=== PATIENT | female | born 1975 | race African-American/Black ===

== ENCOUNTER 2016-12-10 20:11 | Emergency (ER) | payer SELFPAY ==
[2016-12-10] MEDS ORDERED: ASPIRIN 81 MG TABLET, CHEWABLE PO ONE (20:14)
--- NOTE | 2016-12-10 20:57 | RADIOLOGY REPORT (SQ) ---
EXAM DESCRIPTION: CHEST SINGLE VIEW COMPLETED DATE/TIME: 12/10/2016 8:44 pm REASON FOR STUDY: cp COMPARISON: January 2009 EXAM PARAMETERS: NUMBER OF VIEWS: One view. TECHNIQUE: Single frontal radiographic view of the chest acquired. RADIATION DOSE: NA LIMITATIONS: None. FINDINGS: LUNGS AND PLEURA: No opacities, masses or pneumothorax. No pleural effusion. MEDIASTINUM AND HILAR STRUCTURES: No masses. Contour normal. HEART AND VASCULAR STRUCTURES: Heart normal in size. Normal vasculature. BONES: No acute findings. HARDWARE: None in the chest. OTHER: No other significant finding. IMPRESSION: NO ACUTE RADIOGRAPHIC FINDING IN THE CHEST. TECHNICAL DOCUMENTATION: JOB ID: [id number]
[2016-12-10 20:59] LABS: ABSOLUTE EOSINOPHILS # (AUTO) 0.1 10^3/uL (0.0-0.6); ABSOLUTE LYMPHOCYTES (AUTO) 1.4 10^3/uL (0.5-4.7); ABSOLUTE MONOCYTES (AUTO) 0.2 10^3/uL (0.1-1.4); ABSOLUTE NEUT (AUTO) 3.1 10^3/uL (1.7-8.2); BASOPHILS % (AUTO) 0.9 % (0-2); EOSINOPHILS % (AUTO) 2.1 % (0-6); HEMATOCRIT 36.8 % (36.0-47.0); HEMOGLOBIN 12.6 g/dL (12.0-15.5); LYMPHOCYTES % (AUTO) 28.8 % (13-45); MEAN CORPUSCULAR HEMOGLOBIN 26.7 pg (27.0-33.4); MEAN CORPUSCULAR HGB CONC 34.4 g/dL (32.0-36.0); MEAN CORPUSCULAR VOLUME 78 fl (80-97); MONOCYTES % (AUTO) 4.9 % (3-13); RED BLOOD COUNT 4.73 10^6/uL (3.72-5.28); RED CELL DISTRIBUTION WIDTH 17.8 % (11.5-14.0); SEGMENTED NEUTROPHILS % (AUTO) 63.3 % (42-78); WHITE BLOOD COUNT 4.9 10^3/uL (4.0-10.5)
[2016-12-10 21:28] LABS: CREATINE KINASE MB 1.04 ng/mL (<4.55)
[2016-12-10 21:29] LABS: TROPONIN I < 0.012 ng/mL
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
[2016-12-10 21:54] VITALS: BP 169/119
--- NOTE | 2016-12-11 12:12 | EKG REPORT ---
SEVERITY:- ABNORMAL ECG - SINUS RHYTHM LEFT ATRIAL ABNORMALITY PROBABLE LEFT VENTRICULAR HYPERTROPHY : Confirmed by: Adele Barkley MD 11-Dec-2016 12:11:31
== END 2016-12-10 21:52 | disposition home or self-care (01) ==
LOC: ER 20:11
DX: R07.9 Chest pain, unspecified (principal); R00.2 Palpitations; F17.200 Nicotine dependence, unspecified, uncomplicated
CPT/HCPCS: 36415; 71010; 82553; 84484; 85025; 93005; 93010; 99285

== ENCOUNTER 2017-01-23 14:53 | Emergency (ER) | payer SELFPAY ==
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
[2017-01-23] MEDS ORDERED: LIDOCAINE 1% INJ-PF (10 MG/ML) 30 ML SDV INJ ONE (15:31)
[2017-01-23] MEDS ORDERED: HYDROCODONE/ACETAMINOPHEN 5-325 MG TABLET PO ONE (16:28)
[2017-01-23] MEDS ORDERED: SULFAMETHOXAZOLE/TRIMETHOPRIM 800-160 MG TABLET PO ONE (16:28)
[2017-01-23 17:11] VITALS: BP 151/103
== END 2017-01-23 17:11 | disposition home or self-care (01) ==
LOC: ER 14:53
PROC: 0H96XZZ Drainage of Back Skin, External Approach (ICD-10-PCS; principal; 2017-01-23)
DX: L02.212 Cutaneous abscess of back [any part, except buttock and flank] (principal); F17.210 Nicotine dependence, cigarettes, uncomplicated; Z90.49 Acquired absence of other specified parts of digestive tract
CPT/HCPCS: 99406; 99283; 10061; J3490

== ENCOUNTER 2017-02-11 15:06 | Emergency (ER) | payer SELFPAY ==
[2017-02-11 15:10] VITALS: BP 163/107
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
== END 2017-02-11 16:05 | disposition home or self-care (01) ==
LOC: ER 15:06
DX: L02.414 Cutaneous abscess of left upper limb (principal)
CPT/HCPCS: 99282

== ENCOUNTER 2017-04-01 12:39 | Emergency (ER) | payer SELFPAY ==
[2017-04-01] MEDS ORDERED: IPRATROPIUM/ALBUTEROL 0.5-2.5 MG/3 ML AMPUL NEB ONE (13:17)
[2017-04-01] MEDS ORDERED: DEXAMETHASONE 4 MG TABLET PO ONE (13:17)
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
--- NOTE | 2017-04-01 14:00 | RADIOLOGY REPORT (SQ) ---
EXAM DESCRIPTION: CHEST PA/LAT COMPLETED DATE/TIME: 04/01/2017 1:44 pm REASON FOR STUDY: cough COMPARISON: Chest film 01/29/2009, 11/21/2006 EXAM PARAMETERS: NUMBER OF VIEWS: two views TECHNIQUE: Digital Frontal and Lateral radiographic views of the chest acquired. RADIATION DOSE: NA LIMITATIONS: none FINDINGS: LUNGS AND PLEURA: No opacities, masses or pneumothorax. No pleural effusion. MEDIASTINUM AND HILAR STRUCTURES: No masses or contour abnormalities. HEART AND VASCULAR STRUCTURES: Heart normal size. No evidence for failure. BONES: No acute findings. HARDWARE: None in the chest. OTHER: No other significant finding. IMPRESSION: NO SIGNIFICANT RADIOGRAPHIC FINDING IN THE CHEST. TECHNICAL DOCUMENTATION: JOB ID: [id number] [employer]- All Rights Reserved
[2017-04-01 14:08] VITALS: BP 168/114
== END 2017-04-01 14:06 | disposition home or self-care (01) ==
LOC: ER 12:39
DX: R05 Cough (principal); I10 Essential (primary) hypertension; R09.81 Nasal congestion; J34.89 Other specified disorders of nose and nasal sinuses; F17.200 Nicotine dependence, unspecified, uncomplicated
CPT/HCPCS: 94640; 99283; 71020; J7620

== ENCOUNTER 2017-04-02 10:54 | Emergency (ER) | payer SELFPAY ==
[2017-04-02] MEDS ORDERED: IBUPROFEN 600 MG TABLET PO ONE (12:03)
[2017-04-02] MEDS ORDERED: AMLODIPINE BESYLATE 5 MG TABLET PO ONE (12:03)
[2017-04-02] MEDS ORDERED: ACETAMINOPHEN 325 MG TABLET PO ONE (12:03)
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
[2017-04-02 12:29] VITALS: BP 161/116
== END 2017-04-02 12:30 | disposition home or self-care (01) ==
LOC: ER 10:54
DX: R51 Headache (principal); I10 Essential (primary) hypertension; F17.200 Nicotine dependence, unspecified, uncomplicated
CPT/HCPCS: 99283

== ENCOUNTER 2017-04-09 14:57 | Emergency (ER) | payer SELFPAY ==
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
--- NOTE | 2017-04-09 16:05 | RADIOLOGY REPORT (SQ) ---
EXAM DESCRIPTION: CHEST PA/LAT COMPLETED DATE/TIME: 04/09/2017 3:52 pm REASON FOR STUDY: Cough and shortness of breath COMPARISON: 04/01/2017. TECHNIQUE: Frontal and lateral radiographic views of the chest acquired. NUMBER OF VIEWS: Two view. LIMITATIONS: None. FINDINGS: LUNGS AND PLEURA: No opacities, masses or pneumothorax. No pleural effusion. MEDIASTINUM AND HILAR STRUCTURES: No masses or contour abnormalities. HEART AND VASCULAR STRUCTURES: Heart normal size. No evidence for failure. BONES: No acute findings. HARDWARE: None in the chest. OTHER: No other significant finding. IMPRESSION: NO SIGNIFICANT RADIOGRAPHIC FINDING IN THE CHEST. TECHNICAL DOCUMENTATION: JOB ID: [id number] [email or web address]- All Rights Reserved
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
[2017-04-09 16:51] LABS: ABSOLUTE EOSINOPHILS # (AUTO) 0.1 10^3/uL (0.0-0.6); ABSOLUTE LYMPHOCYTES (AUTO) 1.9 10^3/uL (0.5-4.7); ABSOLUTE MONOCYTES (AUTO) 0.4 10^3/uL (0.1-1.4); ABSOLUTE NEUT (AUTO) 2.8 10^3/uL (1.7-8.2); BASOPHILS % (AUTO) 0.9 % (0-2); EOSINOPHILS % (AUTO) 1.7 % (0-6); HEMATOCRIT 41.6 % (36.0-47.0); HEMOGLOBIN 14.2 g/dL (12.0-15.5); MEAN CORPUSCULAR HEMOGLOBIN 27.9 pg (27.0-33.4); MEAN CORPUSCULAR HGB CONC 34.2 g/dL (32.0-36.0); MEAN CORPUSCULAR VOLUME 82 fl (80-97); MONOCYTES % (AUTO) 7.9 % (3-13); RED CELL DISTRIBUTION WIDTH 16.8 % (11.5-14.0); SEGMENTED NEUTROPHILS % (AUTO) 53.5 % (42-78); WHITE BLOOD COUNT 5.3 10^3/uL (4.0-10.5)
[2017-04-09 17:01] LABS: ALANINE AMINOTRANSFERASE 84 U/L (9-52); ALBUMIN 4.1 g/dL (3.5-5.0); ALKALINE PHOSPHATASE 89 U/L (38-126); ANION GAP 13 (5-19); ASPARTATE AMINO TRANSFERASE 37 U/L (14-36); BILIRUBIN,DIRECT 0.3 mg/dL (0.0-0.4); BILIRUBIN,TOTAL 0.6 mg/dL (0.2-1.3); BLOOD UREA NITROGEN 11 mg/dL (7-20); CALCIUM 9.4 mg/dL (8.4-10.2); CARBON DIOXIDE 29 mmol/L (22-30); CHLORIDE 104 mmol/L (98-107); CREATININE RESULT 0.76 mg/dL (0.52-1.25); GLUCOSE 97 mg/dL (75-110); TOTAL PROTEIN 7.3 g/dL (6.3-8.2)
[2017-04-09 17:13] LABS: TROPONIN I < 0.012 ng/mL
[2017-04-09 17:25] LABS: APPEARANCE,URINE CLOUDY; BILIRUBIN,URINE NEGATIVE (NEGATIVE); GLUCOSE, URINE NEGATIVE (NEGATIVE); KETONES,URINE NEGATIVE (NEGATIVE); LEUKOCYTE ESTERASE,URINE NEGATIVE (NEGATIVE); NITRITE,URINE NEGATIVE (NEGATIVE); PROTEIN,URINE 30 mg/dL (NEGATIVE); URINE SPECIFIC GRAVITY 1.017; UROBILINOGEN,URINE NEGATIVE mg/dL (<2.0)
[2017-04-09 17:32] LABS: THYROID STIMULATING HORMONE 1.39 uIU/mL (0.47-4.68)
[2017-04-09 18:36] VITALS: BP 143/98
--- NOTE | 2017-04-10 14:04 | EKG REPORT ---
SEVERITY:- ABNORMAL ECG - SINUS RHYTHM CONSIDER LEFT VENTRICULAR HYPERTROPHY : Confirmed by: Adele Barkley MD 10-Apr-2017 14:03:20
== END 2017-04-09 18:33 | disposition home or self-care (01) ==
LOC: ER 14:57
DX: J06.9 Acute upper respiratory infection, unspecified (principal); R51 Headache; R09.81 Nasal congestion; I10 Essential (primary) hypertension
CPT/HCPCS: 36415; 71020; 80053; 81001; 82553; 84439; 84443; 84484; 85025; 85379; 93005; 93010; 99285

== ENCOUNTER 2017-08-18 21:26 | Emergency (ER) | payer SELFPAY ==
--- NOTE | 2017-08-18 23:08 | EKG REPORT ---
SEVERITY:- ABNORMAL ECG - SINUS RHYTHM PROBABLE LEFT ATRIAL ABNORMALITY PROBABLE LEFT VENTRICULAR HYPERTROPHY : Confirmed by: Malgorzata Torres 18-Aug-2017 23:08:05
[2017-08-18] MEDS ORDERED: ASPIRIN 81 MG TABLET, CHEWABLE PO ONE (23:53)
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
--- NOTE | 2017-08-19 00:21 | RADIOLOGY REPORT (SQ) ---
EXAM DESCRIPTION: CHEST SINGLE VIEW CLINICAL HISTORY: chest pain COMPARISON: 04/09/2017 FINDINGS: Single frontal view of the chest. The cardiomediastinal silhouette has normal size and contour. No consolidation, pneumothorax, or pleural effusion. No displaced rib fractures identified. Prior cholecystectomy. IMPRESSION: 1. No acute pulmonary process identified.
[2017-08-19 00:22] LABS: ABSOLUTE BASOPHILS # (AUTO) 0.1 10^3/uL (0.0-0.2); ABSOLUTE EOSINOPHILS # (AUTO) 0.1 10^3/uL (0.0-0.6); ABSOLUTE LYMPHOCYTES (AUTO) 1.6 10^3/uL (0.5-4.7); ABSOLUTE MONOCYTES (AUTO) 0.4 10^3/uL (0.1-1.4); ABSOLUTE NEUT (AUTO) 3.8 10^3/uL (1.7-8.2); BASOPHILS % (AUTO) 0.9 % (0-2); EOSINOPHILS % (AUTO) 1.5 % (0-6); HEMATOCRIT 41.8 % (36.0-47.0); HEMOGLOBIN 14.1 g/dL (12.0-15.5); MEAN CORPUSCULAR HEMOGLOBIN 26.1 pg (27.0-33.4); MEAN CORPUSCULAR HGB CONC 33.6 g/dL (32.0-36.0); MEAN CORPUSCULAR VOLUME 78 fl (80-97); PLATELET COUNT 223 10^3/uL (150-450); RED BLOOD COUNT 5.38 10^6/uL (3.72-5.28); RED CELL DISTRIBUTION WIDTH 16.7 % (11.5-14.0); SEGMENTED NEUTROPHILS % (AUTO) 63.6 % (42-78); TOTAL CELLS COUNTED % (AUTO) 100 %
[2017-08-19 00:36] LABS: ALANINE AMINOTRANSFERASE 77 U/L (9-52); ALBUMIN 4.4 g/dL (3.5-5.0); ALKALINE PHOSPHATASE 79 U/L (38-126); ANION GAP 11 (5-19); ASPARTATE AMINO TRANSFERASE 40 U/L (14-36); BILIRUBIN,DIRECT 0.1 mg/dL (0.0-0.4); BILIRUBIN,TOTAL 0.4 mg/dL (0.2-1.3); BLOOD UREA NITROGEN 9 mg/dL (7-20); CALCIUM 9.6 mg/dL (8.4-10.2); CARBON DIOXIDE 24 mmol/L (22-30); CHLORIDE 103 mmol/L (98-107); CREATINE KINASE 141 U/L (30-135); GLUCOSE 168 mg/dL (75-110); POTASSIUM 4.1 mmol/L (3.6-5.0); SODIUM 137.8 mmol/L (137-145); TOTAL PROTEIN 7.5 g/dL (6.3-8.2)
[2017-08-19 00:47] LABS: CREATINE KINASE MB 0.78 ng/mL (<4.55); TROPONIN I < 0.012 ng/mL
[2017-08-19] MEDS ORDERED: AMLODIPINE BESYLATE 5 MG TABLET PO ONE (02:27)
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
[2017-08-19 04:55] VITALS: BP 143/113
--- NOTE | 2017-08-19 09:08 | EKG REPORT ---
SEVERITY:- ABNORMAL ECG - SINUS RHYTHM PROBABLE LEFT ATRIAL ABNORMALITY PROBABLE LEFT VENTRICULAR HYPERTROPHY : Confirmed by: Malgorzata Torres 19-Aug-2017 09:07:55
== END 2017-08-19 04:55 | disposition home or self-care (01) ==
LOC: ER 21:26
DX: R20.0 Anesthesia of skin (principal); I10 Essential (primary) hypertension; R20.2 Paresthesia of skin; F17.200 Nicotine dependence, unspecified, uncomplicated; Z90.49 Acquired absence of other specified parts of digestive tract
CPT/HCPCS: 36415; 71045; 80053; 82550; 82553; 84484; 84703; 85025; 93005; 93010; 99284

== ENCOUNTER 2018-06-27 16:01 | Emergency (ER) | payer SELFPAY ==
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
--- NOTE | 2018-06-27 17:57 | RADIOLOGY REPORT (SQ) ---
EXAM DESCRIPTION: CHEST 2 VIEWS COMPLETED DATE/TIME: 06/27/2018 5:48 pm REASON FOR STUDY: cough, CP COMPARISON: Chest films 08/19/2017 EXAM PARAMETERS: NUMBER OF VIEWS: two views TECHNIQUE: Digital Frontal and Lateral radiographic views of the chest acquired. RADIATION DOSE: NA LIMITATIONS: none FINDINGS: LUNGS AND PLEURA: No opacities, masses or pneumothorax. No pleural effusion. MEDIASTINUM AND HILAR STRUCTURES: No masses or contour abnormalities. HEART AND VASCULAR STRUCTURES: Heart normal size. No evidence for failure. BONES: No acute findings. HARDWARE: Clips right upper quadrant post cholecystectomy. OTHER: No other significant finding. IMPRESSION: NO ACUTE RADIOGRAPHIC FINDING IN THE CHEST. TECHNICAL DOCUMENTATION: JOB ID: [id number] [employer]- All Rights Reserved Reading location - IP/workstation name: [email or web address]
[2018-06-27 18:10] LABS: ABSOLUTE EOSINOPHILS # (AUTO) 0.1 10^3/uL (0.0-0.6); ABSOLUTE LYMPHOCYTES (AUTO) 2.2 10^3/uL (0.5-4.7); ABSOLUTE MONOCYTES (AUTO) 0.5 10^3/uL (0.1-1.4); ABSOLUTE NEUT (AUTO) 4.5 10^3/uL (1.7-8.2); BASOPHILS % (AUTO) 0.2 % (0-2); HEMATOCRIT 37.8 % (36.0-47.0); HEMOGLOBIN 13.3 g/dL (12.0-15.5); MEAN CORPUSCULAR HEMOGLOBIN 27.9 pg (27.0-33.4); MEAN CORPUSCULAR HGB CONC 35.3 g/dL (32.0-36.0); MEAN CORPUSCULAR VOLUME 79 fl (80-97); MONOCYTES % (AUTO) 6.4 % (3-13); PLATELET COUNT 262 10^3/uL (150-450); RED BLOOD COUNT 4.78 10^6/uL (3.72-5.28); RED CELL DISTRIBUTION WIDTH 16.1 % (11.5-14.0); SEGMENTED NEUTROPHILS % (AUTO) 62.4 % (42-78); TOTAL CELLS COUNTED % (AUTO) 100 %; WHITE BLOOD COUNT 7.2 10^3/uL (4.0-10.5)
[2018-06-27 18:29] LABS: ALANINE AMINOTRANSFERASE 53 U/L (9-52); ALBUMIN 4.9 g/dL (3.5-5.0); ALKALINE PHOSPHATASE 108 U/L (38-126); ANION GAP 13 (5-19); ASPARTATE AMINO TRANSFERASE 41 U/L (14-36); BILIRUBIN,DIRECT 0.3 mg/dL (0.0-0.4); BILIRUBIN,TOTAL 0.7 mg/dL (0.2-1.3); BLOOD UREA NITROGEN 12 mg/dL (7-20); CALCIUM 10.5 mg/dL (8.4-10.2); CARBON DIOXIDE 26 mmol/L (22-30); CHLORIDE 101 mmol/L (98-107); GLUCOSE 260 mg/dL (75-110); POTASSIUM 4.3 mmol/L (3.6-5.0); SODIUM 139.5 mmol/L (137-145); TOTAL PROTEIN 8.5 g/dL (6.3-8.2)
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
[2018-06-27 22:34] VITALS: BP 129/90
--- NOTE | 2018-06-27 23:21 | EKG REPORT ---
SEVERITY:- ABNORMAL ECG - SINUS RHYTHM CONSIDER LEFT VENTRICULAR HYPERTROPHY : Confirmed by: Adele Barkley MD 27-Jun-2018 23:20:01
== END 2018-06-27 22:34 | disposition home or self-care (01) ==
LOC: ER 16:01
DX: R07.89 Other chest pain (principal); R73.9 Hyperglycemia, unspecified; I10 Essential (primary) hypertension; F17.200 Nicotine dependence, unspecified, uncomplicated
CPT/HCPCS: 36415; 71046; 80053; 84484; 85025; 93005; 93010; 99284

== ENCOUNTER 2018-07-09 05:41 | Inpatient (IN) | payer SELFPAY ==
[2018-07-09] MEDS ORDERED: OXYCODONE-ACETAMINOPHEN 5-325 MG TABLET PO ONE (08:23)
[2018-07-09] MEDS ORDERED: CYCLOBENZAPRINE HCL 10 MG TABLET PO ONE (08:23)
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
--- NOTE | 2018-07-09 09:45 | RADIOLOGY REPORT (SQ) ---
EXAM DESCRIPTION: T SPINE AP/LAT COMPLETED DATE/TIME: 07/09/2018 9:25 am REASON FOR STUDY: back pain s/p fall COMPARISON: None. NUMBER OF VIEWS: Two views. TECHNIQUE: AP and lateral radiographic images acquired of the thoracic spine. LIMITATIONS: Body habitus. FINDINGS: MINERALIZATION: Normal. ALIGNMENT: Normal. No scoliosis. VERTEBRAE: No fracture or bone lesion. Maintained height, normal segmentation. DISCS: No significant loss of height or significant narrowing. No large osteophytes. HARDWARE: None in the spine. MEDIASTINUM AND SOFT TISSUES: Normal heart size and aortic contour. No soft tissue abnormality. VISUALIZED LUNG BARRIENTOS: Clear. OTHER: No other significant finding. IMPRESSION: NO SIGNIFICANT RADIOGRAPHIC FINDING IN THE THORACIC SPINE. TECHNICAL DOCUMENTATION: JOB ID: [id number] [email or web address] All Rights Reserved Reading location - IP/workstation name: [email or web address]
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
--- NOTE | 2018-07-09 11:18 | RADIOLOGY REPORT (SQ) ---
EXAM DESCRIPTION: CTA CHEST COMPLETED DATE/TIME: 07/09/2018 10:58 am REASON FOR STUDY: right rib pain, hypoxia, tachypnea COMPARISON: None. TECHNIQUE: CT scan of the chest performed using helical scanning technique with dynamic intravenous contrast injection. Images reviewed with lung, soft tissue and bone windows. Reconstructed coronal and sagittal MPR images reviewed. Additional 3 dimensional post-processing performed to develop Maximal Intensity Projection images (NM P). All images stored on PACS. All CT scanners at this facility use dose modulation, iterative reconstruction, and/or weight based d osing when appropriate to reduce radiation dose to as low as reasonably achievable (ALARA). [facility]: Dose Right [facility]: CareDose [facility]: Dose Right [facility]: Teradose 4D [facility]: MEEP CONTRAST TYPE AND DOSE: contrast/concentration: Isovue 350.00 mg/ml; Total Contrast Delivered: 86.0 ml; Total Saline Delivered: 80.0 ml Contrast bolus optimized for the pulmonary arteries. Not diagnostic for the aorta. RENAL FUNCTION: GFR > 60. RADIATION DOSE: CT Rad equipment meets quality standard of care and radiation dose reduction techniq ues were employed. CTDIvol: 17.1 - 33.1 mGy. DLP: 741 mGy-cm. . LIMITATIONS: None. FINDINGS: LUNGS AND PLEURA: 3.5 cm mass left upper lobe. Focal pleural thickening posteriorly along the major fissure image 28. Small right pleural effusion and associated airspace disease with air b ronchograms. AORTA AND GREAT VESSELS: No aneurysm. Contrast bolus not optimized for the aorta. HEART: No pericardial effusion. No significant coronary artery calcifications. PULMONARY ARTERIES: No emboli visualized in the main pulmonary arteries or the segmental branches. HILAR AND MEDIASTINAL STRUCTURES: No identified masses or abnormal nodes. HARDWARE: None in the chest. UPPER ABDOMEN: No significant findings. Limited exam. THYROID AND OTHER SOFT TISSUES: No masses. No adenopathy. BONES: Nothing acute. 3D MIPS: Confirm above findings. OTHER: No other significant finding. IMPRESSION: 1. No PE. 2. 3.5 cm left upper lobe mass suspicious for malignancy. 3. Right lower lobe pneumonia and associated small pleural effusion. COMMENT: Quality ID # [id number]: Final reports with documentation of one or more dose reduction techniques (e.g., Automated exposure control, adjustment of the mA and/or kV according to patient size, use of iterative reconstruction technique) TECHNICAL DOCUMENTATION: JOB ID: [id number] [employer]- All Rights Reserved Reading location - IP/workstation name: [email or web address]
[2018-07-09] MEDS ORDERED: NORMAL SALINE 1000 ML 1,000 ML IV ONE (11:26)
[2018-07-09] MEDS ORDERED: CEFTRIAXONE 1 GM/D5W RTU 1 GM/50 ML RTUPB IV ONE (11:26)
[2018-07-09 12:24] LABS: ABSOLUTE LYMPHOCYTES (AUTO) 0.6 10^3/uL (0.5-4.7); ABSOLUTE MONOCYTES (AUTO) 0.8 10^3/uL (0.1-1.4); BASOPHILS % (AUTO) 0.3 % (0-2); EOSINOPHILS % (AUTO) 0.3 % (0-6); HEMATOCRIT 35.3 % (36.0-47.0); HEMOGLOBIN 12.3 g/dL (12.0-15.5); LYMPHOCYTES % (AUTO) 5.9 % (13-45); MEAN CORPUSCULAR HEMOGLOBIN 27.8 pg (27.0-33.4); MEAN CORPUSCULAR HGB CONC 34.8 g/dL (32.0-36.0); MEAN CORPUSCULAR VOLUME 80 fl (80-97); MONOCYTES % (AUTO) 7.4 % (3-13); PLATELET COUNT 244 10^3/uL (150-450); RED CELL DISTRIBUTION WIDTH 16.5 % (11.5-14.0); SEGMENTED NEUTROPHILS % (AUTO) 86.1 % (42-78); TOTAL CELLS COUNTED % (AUTO) 100 %; WHITE BLOOD COUNT 10.4 10^3/uL (4.0-10.5)
[2018-07-09 12:34] LABS: ALANINE AMINOTRANSFERASE 36 U/L (9-52); ALKALINE PHOSPHATASE 112 U/L (38-126); ANION GAP 12 (5-19); ASPARTATE AMINO TRANSFERASE 29 U/L (14-36); BILIRUBIN,DIRECT 0.4 mg/dL (0.0-0.4); BILIRUBIN,TOTAL 0.9 mg/dL (0.2-1.3); BLOOD UREA NITROGEN 7 mg/dL (7-20); CARBON DIOXIDE 23 mmol/L (22-30); CHLORIDE 104 mmol/L (98-107); POTASSIUM 4.5 mmol/L (3.6-5.0); SODIUM 139.2 mmol/L (137-145); TOTAL PROTEIN 7.1 g/dL (6.3-8.2)
[2018-07-09 12:44] LABS: GLUCOSE 458 mg/dL (75-110)
[2018-07-09] MEDS ORDERED: ONDANSETRON HCL INJ/PF 4 MG/2 ML SDV IV PRN (14:12)
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
[2018-07-09 14:35] LABS: ARTERIAL BLOOD BASE EXCESS -3.9 mmol/L; ARTERIAL BLOOD H2CO3 1.13 mmol/L (1.05-1.35); ARTERIAL BLOOD O2 SATURATION 94.7 % (94-98); ARTERIAL BLOOD PCO2 37.7 mmHg (35-45); ARTERIAL BLOOD PH 7.36 (7.35-7.45); ARTERIAL BLOOD PO2 75.1 mmHg (80-100); ARTERIAL BLOOD TOTAL CO2 22.2 mmol/L (21-25)
[2018-07-09 14:36] LABS: ARTERIAL BLOOD FIO2 ROOM AIR
[2018-07-09] MEDS: OXYCODONE-ACETAMINOPHEN 5-325 MG TABLET PO PRN (16:01)
[2018-07-09] MEDS: ENOXAPARIN SODIUM INJ 40 MG/0.4 ML DISP.SYRIN SUBCUT SCH (16:02)
[2018-07-09] MEDS ORDERED: DEXTROSE 50%-WATER 25 GM/50 ML DISP.SYRIN IV PRN ×2 (17:37)
[2018-07-09] MEDS ORDERED: DEXTROSE 40% GEL 15 GM TUBE PO PRN ×2 (17:37)
[2018-07-09] MEDS ORDERED: GLUCAGON,HUMAN RECOMB 1 MG INJ IM PRN (17:37)
--- NOTE | 2018-07-09 17:43 | EKG REPORT ---
SEVERITY:- BORDERLINE ECG - SINUS RHYTHM PROBABLE LEFT ATRIAL ABNORMALITY : Confirmed by: Silviano Turner MD 09-Jul-2018 17:41:49
[2018-07-09] MEDS ORDERED: INSULIN LISPRO 100 UNIT/ML 3 ML VIAL SUBCUT ONE (18:45)
[2018-07-09] MEDS ORDERED: MORPHINE SULFATE 10 MG/ML INJ ONE (20:04)
[2018-07-09] MEDS: MORPHINE SULFATE 10 MG/ML INJ IV PRN ×2 (20:19→22:59)
[2018-07-09] MEDS ORDERED: INSULIN GLARGINE,HUM.REC.ANLOG 1,000 UNIT/10 ML UNIT SUBCUT ONE (21:54)
[2018-07-09] MEDS ORDERED: INSULIN GLARGINE,HUM.REC.ANLOG 300 UNIT/3 ML INSULN.PEN SUBCUT SCH (22:00)
[2018-07-09] MEDS: INSULIN LISPRO 100 UNIT/ML 3 ML VIAL SUBCUT SCH (22:03)
[2018-07-09] MEDS: FAMOTIDINE 20 MG TABLET PO SCH (22:04)
[2018-07-10] MEDS: OXYCODONE-ACETAMINOPHEN 5-325 MG TABLET PO PRN ×3 (04:50→19:38)
[2018-07-10] MEDS ORDERED: INSULIN LISPRO 100 UNIT/ML 3 ML VIAL SUBCUT ONE (07:30)
[2018-07-10 07:48] LABS: ABSOLUTE EOSINOPHILS # (AUTO) 0.1 10^3/uL (0.0-0.6); ABSOLUTE LYMPHOCYTES (AUTO) 1.2 10^3/uL (0.5-4.7); ABSOLUTE MONOCYTES (AUTO) 1.2 10^3/uL (0.1-1.4); ABSOLUTE NEUT (AUTO) 11.8 10^3/uL (1.7-8.2); BASOPHILS % (AUTO) 0.2 % (0-2); EOSINOPHILS % (AUTO) 0.6 % (0-6); HEMATOCRIT 35.1 % (36.0-47.0); LYMPHOCYTES % (AUTO) 8.4 % (13-45); MEAN CORPUSCULAR HEMOGLOBIN 27.4 pg (27.0-33.4); MEAN CORPUSCULAR HGB CONC 34.2 g/dL (32.0-36.0); MEAN CORPUSCULAR VOLUME 80 fl (80-97); MONOCYTES % (AUTO) 8.3 % (3-13); PLATELET COUNT 246 10^3/uL (150-450); RED BLOOD COUNT 4.38 10^6/uL (3.72-5.28); RED CELL DISTRIBUTION WIDTH 16.5 % (11.5-14.0); SEGMENTED NEUTROPHILS % (AUTO) 82.5 % (42-78); TOTAL CELLS COUNTED % (AUTO) 100 %; WHITE BLOOD COUNT 14.3 10^3/uL (4.0-10.5)
[2018-07-10 07:59] LABS: ANION GAP 11 (5-19); BLOOD UREA NITROGEN 8 mg/dL (7-20); CALCIUM 8.7 mg/dL (8.4-10.2); CARBON DIOXIDE 26 mmol/L (22-30); CHLORIDE 102 mmol/L (98-107); GLUCOSE 245 mg/dL (75-110); POTASSIUM 3.8 mmol/L (3.6-5.0); SODIUM 138.7 mmol/L (137-145)
[2018-07-10] MEDS ORDERED: METFORMIN HCL 500 MG TABLET PO SCH (08:00)
[2018-07-10] MEDS: INSULIN LISPRO 100 UNIT/ML 3 ML VIAL SUBCUT SCH ×4 (08:09→22:10)
[2018-07-10] MEDS: MORPHINE SULFATE 10 MG/ML INJ IV PRN ×4 (08:21→22:11)
[2018-07-10] MEDS: ENOXAPARIN SODIUM INJ 40 MG/0.4 ML DISP.SYRIN SUBCUT SCH (09:44)
[2018-07-10] MEDS: FAMOTIDINE 20 MG TABLET PO SCH ×2 (09:45→22:10)
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
[2018-07-10] MEDS ORDERED: LISINOPRIL 10 MG TABLET PO ONE (11:23)
[2018-07-10] MEDS ORDERED: AMLODIPINE BESYLATE 10 MG TABLET PO ONE (11:24)
[2018-07-10] MEDS: LEVOFLOXACIN 750 MG/D5W RTU 750 MG/150 ML RTUPB IV SCH (12:14)
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
--- NOTE | 2018-07-10 15:52 | EKG REPORT ---
SEVERITY:- BORDERLINE ECG - SINUS TACHYCARDIA PROBABLE LEFT ATRIAL ABNORMALITY BORDERLINE T ABNORMALITIES, INFERIOR LEADS : Confirmed by: Silviano Turner MD 10-Jul-2018 15:51:14
[2018-07-10] MEDS: METFORMIN HCL 500 MG TABLET PO SCH (16:49)
[2018-07-10] MEDS ORDERED: INSULIN GLARGINE,HUM.REC.ANLOG 300 UNIT/3 ML INSULN.PEN SUBCUT SCH (22:00)
[2018-07-11] MEDS: MORPHINE SULFATE 10 MG/ML INJ IV PRN ×2 (04:00→09:28)
[2018-07-11 05:58] LABS: ABSOLUTE BASOPHILS # (AUTO) 0.1 10^3/uL (0.0-0.2); ABSOLUTE EOSINOPHILS # (AUTO) 0.1 10^3/uL (0.0-0.6); ABSOLUTE MONOCYTES (AUTO) 1.4 10^3/uL (0.1-1.4); ABSOLUTE NEUT (AUTO) 12.5 10^3/uL (1.7-8.2); BASOPHILS % (AUTO) 0.4 % (0-2); EOSINOPHILS % (AUTO) 0.8 % (0-6); HEMATOCRIT 33.1 % (36.0-47.0); HEMOGLOBIN 11.1 g/dL (12.0-15.5); LYMPHOCYTES % (AUTO) 6.6 % (13-45); MEAN CORPUSCULAR HGB CONC 33.5 g/dL (32.0-36.0); MEAN CORPUSCULAR VOLUME 81 fl (80-97); MONOCYTES % (AUTO) 9.1 % (3-13); PLATELET COUNT 208 10^3/uL (150-450); RED CELL DISTRIBUTION WIDTH 16.4 % (11.5-14.0); SEGMENTED NEUTROPHILS % (AUTO) 83.1 % (42-78); TOTAL CELLS COUNTED % (AUTO) 100 %; WHITE BLOOD COUNT 15.1 10^3/uL (4.0-10.5)
[2018-07-11 06:22] LABS: ANION GAP 12 (5-19); BLOOD UREA NITROGEN 11 mg/dL (7-20); CALCIUM 8.4 mg/dL (8.4-10.2); CARBON DIOXIDE 25 mmol/L (22-30); CHLORIDE 96 mmol/L (98-107); GLUCOSE 246 mg/dL (75-110); POTASSIUM 3.6 mmol/L (3.6-5.0)
[2018-07-11] MEDS: INSULIN LISPRO 100 UNIT/ML 3 ML VIAL SUBCUT SCH ×4 (07:36→22:07)
[2018-07-11] MEDS: METFORMIN HCL 500 MG TABLET PO SCH ×2 (07:36→16:58)
[2018-07-11] MEDS: OXYCODONE-ACETAMINOPHEN 5-325 MG TABLET PO PRN ×4 (07:37→22:00)
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
[2018-07-11] MEDS: LEVOFLOXACIN 750 MG/D5W RTU 750 MG/150 ML RTUPB IV SCH (09:17)
[2018-07-11] MEDS: AMLODIPINE BESYLATE 10 MG TABLET PO SCH (09:18)
[2018-07-11] MEDS: ENOXAPARIN SODIUM INJ 40 MG/0.4 ML DISP.SYRIN SUBCUT SCH (09:18)
[2018-07-11] MEDS: FAMOTIDINE 20 MG TABLET PO SCH ×2 (09:19→22:00)
[2018-07-11] MEDS: LISINOPRIL 10 MG TABLET PO SCH (09:19)
--- NOTE | 2018-07-11 14:08 | RADIOLOGY REPORT (SQ) ---
EXAM DESCRIPTION: CHEST SINGLE VIEW COMPLETED DATE/TIME: 07/11/2018 1:56 pm REASON FOR STUDY: pna COMPARISON: 06/27/2018 EXAM PARAMETERS: NUMBER OF VIEWS: One view. TECHNIQUE: Single frontal radiographic view of the chest acquired. RADIATION DOSE: NA LIMITATIONS: None. FINDINGS: LUNGS AND PLEURA: Interval worsening in the appearance of the right lung. New developmen t of moderate to large right pleural effusion. A round mass-like density in the right upper-mid lung zone adjacent to the hilar region may be on the basis of fluid within the fissure versus focal conso lidation. The left lung remains clear. No pneumothorax. MEDIASTINUM AND HILAR STRUCTURES: No masses. Contour normal. HEART AND VASCULAR STRUCTURES: Heart normal in size. Normal vasculature. BONES: No acute findings. HARDWARE: None in the chest. OTHER: No other significant finding. IMPRESSION: 1. Interval worsening in the appearance of the right lung since the prior study dated . New moderate to large right pleural effusion. Correlation suggested. 2. Round mass-like density in the right upper-mid lung zone adjacent to the fissure may represent fl uid within the fissure versus focal consolidation. TECHNICAL DOCUMENTATION: JOB ID: [id number] [employer]- All Rights Reserved Reading location - IP/workstation name: [email or web address]
[2018-07-11] MEDS ORDERED: VANCOMYCIN HCL 0 MG in DEXTROSE 5%-WATER 250 ML IV NR (17:15)
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
[2018-07-11] MEDS ORDERED: DEXTROSE 50%-WATER 25 GM/50 ML DISP.SYRIN IV PRN ×2 (18:27)
[2018-07-11] MEDS ORDERED: GLUCAGON,HUMAN RECOMB 1 MG INJ SUBCUT PRN (18:27)
[2018-07-11] MEDS ORDERED: DEXTROSE 40% GEL 15 GM TUBE PO PRN ×2 (18:27)
[2018-07-11] MEDS: ACETAMINOPHEN 325 MG TABLET PO PRN (20:23)
[2018-07-11] MEDS: CEFEPIME HCL 2 GM in DEXTROSE 5%-WATER 50 ML IV SCH (21:12)
[2018-07-11] MEDS ORDERED: INSULIN GLARGINE,HUM.REC.ANLOG 300 UNIT/3 ML INSULN.PEN SUBCUT SCH (22:00)
[2018-07-11] MEDS ORDERED: CEFEPIME 2 GM/D5W RTU 2 GM/50 ML RTUPB IV SCH (22:00)
[2018-07-11] MEDS: VANCOMYCIN HCL 1,250 MG in DEXTROSE 5%-WATER 250 ML IV SCH (22:01)
[2018-07-12] MEDS: VANCOMYCIN HCL 1,250 MG in DEXTROSE 5%-WATER 250 ML IV SCH ×3 (05:30→23:57)
[2018-07-12 07:47] LABS: HEMATOCRIT 30.8 % (36.0-47.0); HEMOGLOBIN 10.6 g/dL (12.0-15.5); INTERNATIONAL RATION (INR) 1.13; MEAN CORPUSCULAR HEMOGLOBIN 27.1 pg (27.0-33.4); MEAN CORPUSCULAR HGB CONC 34.3 g/dL (32.0-36.0); MEAN CORPUSCULAR VOLUME 79 fl (80-97); PARTIAL THROMBOPLASTIN TIME 45.6 SEC (23.5-35.8); PLATELET COUNT 225 10^3/uL (150-450); PROTHROMBIN TIME 15.1 SEC (11.4-15.4); RED BLOOD COUNT 3.89 10^6/uL (3.72-5.28); RED CELL DISTRIBUTION WIDTH 16.3 % (11.5-14.0); WHITE BLOOD COUNT 14.2 10^3/uL (4.0-10.5)
[2018-07-12] MEDS ORDERED: ACETAMINOPHEN 650 MG SUPP.RECT PR ONE ×2 (07:55→08:30)
[2018-07-12] MEDS: INSULIN LISPRO 100 UNIT/ML 3 ML VIAL SUBCUT SCH ×4 (08:00→23:58)
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
[2018-07-12 08:22] LABS: ABSOLUTE MONOCYTES # (MANUAL) 0.9 10^3/uL (0.1-1.4); ABSOLUTE NEUTROPHILS# (MANUAL) 12.4 10^3/uL (1.7-8.2); ANISOCYTOSIS 1+; BASOPHILS % (MANUAL) 0 % (0-2); EOSINOPHILS % (MANUAL) 0 % (0-6); LYMPHOCYTES % (MANUAL) 7 % (13-45); MONOCYTES % (MANUAL) 6 % (3-13); OVALOCYTES SLIGHT; PLATELET COMMENT ADEQUATE; POIKILOCYTOSIS SLIGHT; POLYCHROMASIA SLIGHT; SEGMENTED NEUTROPHILS % (MAN) 87 % (42-78); TOTAL CELLS COUNTED 100
--- NOTE | 2018-07-12 11:28 | RADIOLOGY REPORT (SQ) ---
EXAM DESCRIPTION: CT CHEST WITH COMPLETED DATE/TIME: 07/12/2018 11:12 am REASON FOR STUDY: Rt lung PNA and effusion and Lt UL mass COMPARISON: Chest films 06/27/2018, 07/11/2018 CT chest 07/09/2018 CT abdomen pelvis 07/10/2018 TECHNIQUE: CT scan of the chest performed using helical scanning technique with dynamic intravenous contrast injection. Images reviewed with lung, soft tissue and bone windows. Reconstructed coronal and sagittal MPR and MIP images reviewed. All images stored on PACS. All CT scanners at this facility use dose modulation, iterative reconstruction, and/or weight based d osing when appropriate to reduce radiation dose to as low as reasonably achievable (ALARA). [facility]: Dose Right [facility]: CareDose [facility]: Dose Right [facility]: Teradose 4D [facility]: DBi Services CONTRAST TYPE AND DOSE: contrast/concentration: Isovue 350.00 mg/ml; Total Contrast Delivered: 80.0 ml; Total Saline Delivered: 55.0 ml RENAL FUNCTION: GFR > 60. RADIATION DOSE: CT Rad equipment meets quality standard of care and radiation dose reduction techniq ues were employed. CTDIvol: NaN - NaN mGy. DLP: 0 mGy-cm. . LIMITATIONS: None. FINDINGS: LUNGS AND PLEURA: A moderate to large loculated right pleural effusion is present, with lo culated fluid in the right minor fissure. Complete collapse right lower lobe with consolidation, par tial collapse right middle and upper lobe with consolidation worrisome for multifocal pneumonia. Patchy airspace disease in the left upper lobe worrisome for pneumonia. Persistent consolidation versus mass in the left upper lobe abutting the mediastinal soft tissues, ab out 3 x 3 cm in size on axial image 17. No left pleural effusion. No right or left pneumothorax. HILAR AND MEDIASTINAL STRUCTURES: No identified masses or abnormal nodes. HEART AND VASCULAR STRUCTURES: No aneurysm or dissection. No central pulmonary emboli. No pericardi al effusion. HARDWARE: None in the chest. UPPER ABDOMEN: There is diffuse hepatomegaly THYROID AND OTHER SOFT TISSUES: No masses. No adenopathy. BONES: No significant finding. OTHER: No other significant finding. IMPRESSION: Moderate to large multiloculated right pleural effusion with near complete collapse/cons olidation of the right lung from pneumonia. Patchy left apical ground-glass opacity worrisome for pneumonia, progressive compared to 08/03/2018. 3 x 3 cm mass versus consolidation abutting the lateral aspect of the aortic arch/great vessels COMMENT: Findings discussed with and Dr. Moore. No chest intervention was performed at this time, planning to transfer the patient to thoracic surgery TECHNICAL DOCUMENTATION: JOB ID: [id number] Quality ID # [id number]: Final reports with documentation of one or more dose reduction techniques (e.g., Au tomated exposure control, adjustment of the mA and/or kV according to patient size, use of iterative reconstruction technique) 2010 [employer]- All Rights Reserved Reading location - IP/workstation name: [email or web address]
--- NOTE | 2018-07-12 11:31 | RADIOLOGY REPORT (SQ) ---
EXAM DESCRIPTION: U/S CHEST COMPLETED DATE/TIME: 07/12/2018 11:03 am REASON FOR STUDY: Dyspnea and right pleural effusion COMPARISON: Chest films 07/11/2018, 06/27/2018 CT chest 07/09/2018 TECHNIQUE: Ultrasound of the chest was performed to quantify pleural effusion LIMITATIONS: None. FINDINGS: Ultrasound of the posterior right chest was performed to quantify pleural effusion. There is a multilocular right-sided pleural effusion, with pockets of fluid at the apex hemithorax, along the right minor fissure, and along the posterior right hemithorax. Collapse/ consolidation of the ri ght lower lobe is present. Findings were discussed with Dr Wilder. Follow-up CT will be performed shortly. IMPRESSION: Multiloculated large right pleural effusion. Findings discussed with attending hospital ist physician TECHNICAL DOCUMENTATION: JOB ID: [id number] [employer]- All Rights Reserved Reading location - IP/workstation name: [email or web address]
[2018-07-12] MEDS: AMLODIPINE BESYLATE 10 MG TABLET PO SCH (12:22)
[2018-07-12] MEDS: FAMOTIDINE 20 MG TABLET PO SCH ×2 (12:22→22:52)
[2018-07-12] MEDS: LISINOPRIL 10 MG TABLET PO SCH (12:22)
[2018-07-12] MEDS: CEFEPIME HCL 2 GM in DEXTROSE 5%-WATER 50 ML IV SCH ×2 (12:23→22:52)
[2018-07-12] MEDS: OXYCODONE-ACETAMINOPHEN 5-325 MG TABLET PO PRN (12:23)
[2018-07-12] MEDS: METFORMIN HCL 500 MG TABLET PO SCH ×2 (12:36→16:22)
[2018-07-12] MEDS: MORPHINE SULFATE 10 MG/ML INJ IV PRN ×2 (13:40→16:53)
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
[2018-07-12] MEDS: ACETAMINOPHEN 325 MG TABLET PO PRN (19:55)
[2018-07-12 21:15] VITALS: BP 126/72
[2018-07-12] MEDS ORDERED: INSULIN GLARGINE,HUM.REC.ANLOG 300 UNIT/3 ML INSULN.PEN SUBCUT SCH (22:00)
[2018-07-12 22:26] LABS: VANCOMYCIN,TROUGH 6.6 ug/mL (5.0-20.0)
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
== END 2018-07-13 00:04 | disposition short-term general hospital (02) | DRG 194 ==
LOC: ER 05:41 → EH 13:29 → 5 17:27 → 3N 07-12 13:18
PROVIDERS: ADMIT Internal Medicine; ATTEND Internal Medicine
DX: J18.1 Lobar pneumonia, unspecified organism (principal); J90 Pleural effusion, not elsewhere classified; E11.65 Type 2 diabetes mellitus with hyperglycemia; R91.8 Other nonspecific abnormal finding of lung field; I10 Essential (primary) hypertension; D64.9 Anemia, unspecified; F17.200 Nicotine dependence, unspecified, uncomplicated; R06.82 Tachypnea, not elsewhere classified; E66.9 Obesity, unspecified; M54.9 Dorsalgia, unspecified; W19.XXXA Unspecified fall, initial encounter; Z87.828 Personal history of other (healed) physical injury and trauma; Z82.49 Family history of ischemic heart disease and other diseases of the circulatory system; Z68.29 Body mass index [BMI] 29.0-29.9, adult; Z79.84 Long term (current) use of oral hypoglycemic drugs
CPT/HCPCS: 36415; 71045; 71260; 71275; 72070; 72110; 74177; 76604; 80048; 80053; 80202; 82803; 82962; 83036; 85025; 85610; 85730; 87040; 87070; 87077; 87186; 87205; 93005; 93010; 96365; 99285; J0692; J0696; J1650; J1815; J1956; J2270; J2405; J3370; J7030; J7060

== ENCOUNTER 2018-07-21 21:01 | Emergency (ER) | payer SELFPAY ==
[2018-07-21 21:08] VITALS: BP 127/86
--- NOTE | 2018-07-21 22:01 | RADIOLOGY REPORT (SQ) ---
EXAM DESCRIPTION: XR CHEST 1 VIEW COMPLETED DATE/TME: 07/21/2018 00:00 CLINICAL HISTORY: 43 years, Female, chest tube and now more pain COMPARISON: 07/11/2018 chest NUMBER OF VIEWS: 1 TECHNIQUE: Portable chest LIMITATIONS: None. FINDINGS: Heart size is normal. Persistent nodular density in the right hilar region, appearing somewhat smaller on this exam. Correlate with treatment history. Moderate right pleural effusion, also somewhat smaller. Right thoracostomy tube in place. No discrete pneumothorax. Elevation of the right hemidiaphragm. IMPRESSION: Nodular density in the right perihilar region, appearing slightly smaller in today's exam. Persistent moderate right pleural effusion, also decreased in size. Right thoracostomy tube in place copyright 2010 [employer]- All Rights Reserved
== END 2018-07-22 01:12 | disposition left against medical advice (07) ==
LOC: ER 21:01
DX: Z53.21 Procedure and treatment not carried out due to patient leaving prior to being seen by health care provider (principal)
CPT/HCPCS: 71045

== ENCOUNTER 2018-07-23 01:48 | Emergency (ER) | payer SELFPAY ==
--- NOTE | 2018-07-23 03:01 | RADIOLOGY REPORT (SQ) ---
EXAM DESCRIPTION: XR CHEST 1 VIEW COMPLETED DATE/TME: 07/23/2018 02:18 CLINICAL HISTORY: 43 years, Female, sob COMPARISON: 07/21/2018 chest NUMBER OF VIEWS: 1 TECHNIQUE: Portable chest LIMITATIONS: None. FINDINGS: Heart size is stable. Moderate to large right pleural effusion. Right thoracostomy tube in place. No discrete pneumothorax. IMPRESSION: Little interval change copyright 2010 [employer]- All Rights Reserved
[2018-07-23 03:05] LABS: VENOUS BLOOD BASE EXCESS 2.6 mmol/L; VENOUS BLOOD HCO3 29.3 mmol/L (20-32); VENOUS BLOOD PCO2 51.9 mmHg (35-63); VENOUS BLOOD PH 7.37 (7.30-7.42)
[2018-07-23 03:07] LABS: ABSOLUTE BASOPHILS # (AUTO) 0.1 10^3/uL (0.0-0.2); ABSOLUTE EOSINOPHILS # (AUTO) 0.2 10^3/uL (0.0-0.6); ABSOLUTE LYMPHOCYTES (AUTO) 1.8 10^3/uL (0.5-4.7); ABSOLUTE MONOCYTES (AUTO) 0.4 10^3/uL (0.1-1.4); ABSOLUTE NEUT (AUTO) 4.3 10^3/uL (1.7-8.2); BASOPHILS % (AUTO) 0.9 % (0-2); EOSINOPHILS % (AUTO) 3.2 % (0-6); HEMATOCRIT 30.5 % (36.0-47.0); HEMOGLOBIN 10.6 g/dL (12.0-15.5); LYMPHOCYTES % (AUTO) 26.3 % (13-45); MEAN CORPUSCULAR HEMOGLOBIN 27.4 pg (27.0-33.4); MEAN CORPUSCULAR HGB CONC 34.7 g/dL (32.0-36.0); MEAN CORPUSCULAR VOLUME 79 fl (80-97); MONOCYTES % (AUTO) 6.1 % (3-13); PLATELET COUNT 675 10^3/uL (150-450); RED BLOOD COUNT 3.87 10^6/uL (3.72-5.28); RED CELL DISTRIBUTION WIDTH 16.4 % (11.5-14.0); SEGMENTED NEUTROPHILS % (AUTO) 63.5 % (42-78); TOTAL CELLS COUNTED % (AUTO) 100 %; WHITE BLOOD COUNT 6.8 10^3/uL (4.0-10.5)
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
[2018-07-23 03:21] LABS: ANION GAP 12 (5-19); BLOOD UREA NITROGEN 8 mg/dL (7-20); CALCIUM 9.6 mg/dL (8.4-10.2); CARBON DIOXIDE 27 mmol/L (22-30); CHLORIDE 98 mmol/L (98-107); GLUCOSE 136 mg/dL (75-110); POTASSIUM 4.6 mmol/L (3.6-5.0); SODIUM 137.1 mmol/L (137-145)
[2018-07-23 04:20] VITALS: BP 122/82
== END 2018-07-23 04:25 | disposition home or self-care (01) ==
LOC: ER 01:48
DX: J90 Pleural effusion, not elsewhere classified (principal); R06.02 Shortness of breath; R07.89 Other chest pain; R06.01 Orthopnea; I10 Essential (primary) hypertension; Z98.890 Other specified postprocedural states
CPT/HCPCS: 36415; 71045; 80048; 82803; 83605; 85025; 87040; 99285

== ENCOUNTER 2019-11-23 12:51 | Emergency (ER) | payer BC ==
[2019-11-23] MEDS ORDERED: ONDANSETRON 4 MG TAB.RAPDIS PO ONE (13:37)
[2019-11-23 14:01] LABS: ABSOLUTE BASOPHILS # (AUTO) 0.1 10^3/uL (0.0-0.2); ABSOLUTE EOSINOPHILS # (AUTO) 0.1 10^3/uL (0.0-0.6); ABSOLUTE LYMPHOCYTES (AUTO) 1.2 10^3/uL (0.5-4.7); ABSOLUTE MONOCYTES (AUTO) 0.3 10^3/uL (0.1-1.4); ABSOLUTE NEUT (AUTO) 2.4 10^3/uL (1.7-8.2); BASOPHILS % (AUTO) 1.3 % (0-2); EOSINOPHILS % (AUTO) 2.9 % (0-6); HEMATOCRIT 33.9 % (36.0-47.0); HEMOGLOBIN 11.1 g/dL (12.0-15.5); LYMPHOCYTES % (AUTO) 29.3 % (13-45); MEAN CORPUSCULAR HEMOGLOBIN 22.6 pg (27.0-33.4); MEAN CORPUSCULAR HGB CONC 32.6 g/dL (32.0-36.0); MEAN CORPUSCULAR VOLUME 69 fl (80-97); MONOCYTES % (AUTO) 7.9 % (3-13); PLATELET COUNT 251 10^3/uL (150-450); RED BLOOD COUNT 4.89 10^6/uL (3.72-5.28); RED CELL DISTRIBUTION WIDTH 17.7 % (11.5-14.0); SEGMENTED NEUTROPHILS % (AUTO) 58.6 % (42-78); TOTAL CELLS COUNTED % (AUTO) 100 %; WHITE BLOOD COUNT 4.1 10^3/uL (4.0-10.5)
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
[2019-11-23 14:26] LABS: ALBUMIN 4.3 g/dL (3.5-5.0); ALKALINE PHOSPHATASE 86 U/L (38-126); ANION GAP 6 (5-19); ASPARTATE AMINO TRANSFERASE 25 U/L (14-36); BILIRUBIN,TOTAL 0.6 mg/dL (0.2-1.3); BLOOD UREA NITROGEN 10 mg/dL (7-20); CALCIUM 8.9 mg/dL (8.4-10.2); CARBON DIOXIDE 27 mmol/L (22-30); CHLORIDE 104 mmol/L (98-107); GLUCOSE 93 mg/dL (75-110); POTASSIUM 3.7 mmol/L (3.6-5.0); TOTAL PROTEIN 7.8 g/dL (6.3-8.2)
[2019-11-23] MEDS ORDERED: ONDANSETRON ODT 4 MG TAB (6 TAB/ER DISP) PO PRN (15:34)
[2019-11-23 15:57] VITALS: BP 152/102
== END 2019-11-23 16:00 | disposition home or self-care (01) ==
LOC: ER 12:51
DX: R11.0 Nausea (principal); R25.1 Tremor, unspecified; E10.9 Type 1 diabetes mellitus without complications; I10 Essential (primary) hypertension; F17.210 Nicotine dependence, cigarettes, uncomplicated; Z79.4 Long term (current) use of insulin
CPT/HCPCS: 99283; 36415; 84703; 85025; 80053; S0119

== ENCOUNTER 2019-12-03 14:30 | Emergency (ER) | payer BC ==
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
[2019-12-03 15:14] LABS: ABSOLUTE EOSINOPHILS # (AUTO) 0.1 10^3/uL (0.0-0.6); ABSOLUTE LYMPHOCYTES (AUTO) 1.6 10^3/uL (0.5-4.7); ABSOLUTE MONOCYTES (AUTO) 0.4 10^3/uL (0.1-1.4); BASOPHILS % (AUTO) 0.7 % (0-2); EOSINOPHILS % (AUTO) 0.9 % (0-6); HEMOGLOBIN 10.6 g/dL (12.0-15.5); LYMPHOCYTES % (AUTO) 25.8 % (13-45); MEAN CORPUSCULAR HEMOGLOBIN 22.3 pg (27.0-33.4); MEAN CORPUSCULAR VOLUME 70 fl (80-97); MONOCYTES % (AUTO) 7.3 % (3-13); PLATELET COUNT 259 10^3/uL (150-450); RED BLOOD COUNT 4.73 10^6/uL (3.72-5.28); RED CELL DISTRIBUTION WIDTH 18.4 % (11.5-14.0); SEGMENTED NEUTROPHILS % (AUTO) 65.3 % (42-78); TOTAL CELLS COUNTED % (AUTO) 100 %; WHITE BLOOD COUNT 6.1 10^3/uL (4.0-10.5)
--- NOTE | 2019-12-03 15:15 | RADIOLOGY REPORT (SQ) ---
EXAM DESCRIPTION: CHEST SINGLE VIEW IMAGES COMPLETED DATE/TIME: 12/03/2019 3:05 pm REASON FOR STUDY: SOB COMPARISON: Chest x-ray 07/23/2018, 06/27/2018, 08/19/2017. EXAM PARAMETERS: NUMBER OF VIEWS: One view. TECHNIQUE: Single frontal radiographic view of the chest acquired. RADIATION DOSE: NA LIMITATIONS: None. FINDINGS: LUNGS AND PLEURA: No consolidation, sizeable pleural effusion or pneumothorax. MEDIASTINUM AND HILAR STRUCTURES: No masses. Contour normal. HEART AND VASCULAR STRUCTURES: Heart normal in size. Normal vasculature. BONES: No acute findings. HARDWARE: None in the chest. IMPRESSION: NO ACUTE RADIOGRAPHIC FINDING IN THE CHEST. TECHNICAL DOCUMENTATION: JOB ID: [id number] 2010 [employer]- All Rights Reserved Reading location - IP/workstation name: [email or web address]
[2019-12-03 15:33] LABS: ALBUMIN 4.4 g/dL (3.5-5.0); ALKALINE PHOSPHATASE 86 U/L (38-126); ANION GAP 9 (5-19); ASPARTATE AMINO TRANSFERASE 21 U/L (14-36); BILIRUBIN,TOTAL 0.8 mg/dL (0.2-1.3); BLOOD UREA NITROGEN 12 mg/dL (7-20); CARBON DIOXIDE 25 mmol/L (22-30); CHLORIDE 105 mmol/L (98-107); GLUCOSE 100 mg/dL (75-110); POTASSIUM 3.7 mmol/L (3.6-5.0); TOTAL PROTEIN 8.1 g/dL (6.3-8.2)
[2019-12-03] MEDS ORDERED: NORMAL SALINE 1000 ML 1,000 ML IV ONE (15:41)
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
[2019-12-03 16:15] LABS: APPEARANCE,URINE SLIGHTLY-CLOUDY; BILIRUBIN,URINE NEGATIVE (NEGATIVE); COLOR,URINE AMBER; GLUCOSE, URINE NEGATIVE (NEGATIVE); KETONES,URINE TRACE mg/dL (NEGATIVE); PROTEIN,URINE 100 mg/dL (NEGATIVE)
[2019-12-03 16:21] LABS: URINE AMPHETAMINES SCREEN NEGATIVE; URINE BARBITURATES SCREEN NEGATIVE; URINE BENZODIAZEPINES SCREEN NEGATIVE; URINE COCAINE SCREEN NEGATIVE; URINE MARIJUANA (THC) SCREEN NEGATIVE; URINE METHADONE SCREEN NEGATIVE; URINE PHENCYCLIDINE SCREEN NEGATIVE
[2019-12-03 18:01] VITALS: BP 170/116
--- NOTE | 2019-12-04 07:56 | EKG REPORT ---
SEVERITY:- ABNORMAL ECG - SINUS RHYTHM PROBABLE LEFT ATRIAL ABNORMALITY PROBABLE LEFT VENTRICULAR HYPERTROPHY BORDERLINE INFERIOR Q WAVES : Confirmed by: Malgorzata Torres 04-Dec-2019 07:56:10
== END 2019-12-03 18:06 | disposition home or self-care (01) ==
LOC: ER 14:30
DX: R55 Syncope and collapse (principal); I10 Essential (primary) hypertension; E10.9 Type 1 diabetes mellitus without complications; F17.210 Nicotine dependence, cigarettes, uncomplicated; Z90.49 Acquired absence of other specified parts of digestive tract; Z79.4 Long term (current) use of insulin
CPT/HCPCS: 93005; 99284; 96360; 36415; 82962; 85025; 81025; 80053; 81001; 84484; 80307; 85379; 71045; 93010; J7030

== ENCOUNTER → 2020-04-08 | Outpatient (CLI) | payer BC ==
--- NOTE | 2020-04-08 14:08 | WOMENS IMAGING REPORT ---
EXAM DESCRIPTION: BILAT SCREENING MAMMO W/CAD IMAGES COMPLETED DATE/TIME: 04/08/2020 1:45 pm REASON FOR STUDY: Z12.31 ENCNTR SCREEN MAMMOGRAM FOR MALIGNANT NEOPLASM OF BREAST Z12.31 ENCNTR SCR EEN MAMMOGRAM FOR MALIGNANT NEOPLASM OF ADRYAN COMPARISON: None. EXAM PARAMETERS: Standard craniocaudal and mediolateral oblique views of each breast recorded using digital acquisition. Read with the assistance of CAD. .[facility] - [employer] Job Titles Version 9.2 LIMITATIONS: None. FINDINGS: No suspicious masses, suspicious calcifications or architectural distortion. No areas of c oncern. IMPRESSION: NEGATIVE MAMMOGRAM. BIRADS 1 BREAST DENSITY: c. The breasts are heterogeneously dense, which may obscure small masses. BIRAD: ASSESSMENT: 1 NEGATIVE RECOMMENDATION: ROUTINE SCREENING COMMENT: The patient has been notified of the results by letter per MQSA requirements. Additional no tification policies are in place for contacting patient with suspicious or incomplete findings. Quality ID #[id number]: The [employer] recommends an annual screening mammogram for women aged 40 years or over. This facility utilizes a reminder system to ensure that all patients receive reminder letters, and/or direct phone calls for appointments. This includes reminders for routine scr eening mammograms, diagnostic mammograms, or other Breast Imaging Interventions when appropriate. Th is patient will be placed in the appropriate reminder system. TECHNICAL DOCUMENTATION: FINDING NUMBER: (1) ASSESSMENT: (1) JOB ID: [id number] 2010 [employer]- All Rights Reserved Reading location - IP/workstation name: [email or web address]
== END ==
LOC: WI 13:24
PROVIDERS: ATTEND Nurse Practitioner Family
DX: Z12.31 Encounter for screening mammogram for malignant neoplasm of breast (principal)
CPT/HCPCS: 77067